=== PATIENT | female | born 1950 | race Caucasian/White ===

== ENCOUNTER 2018-12-15 21:50 | Emergency (ER) | payer MEDICARE, BC ==
[2018-12-15 22:11] VITALS: BP 149/83
--- NOTE | 2018-12-15 22:45 | EDM.PDOC ---
ED HPI GENERAL MEDICAL PROBLEM - General Chief Complaint: Neuro Symptoms/Deficits Stated Complaint: LEFT SIDE NUMBNESS Time Seen by Provider: 12/15/18 21:53 Source of Information: Reports: Patient, EMS, Family ( and mother) History Limitations: Reports: No Limitations - History of Present Illness INITIAL COMMENTS - FREE TEXT/NARRATIVE: Patient brought via EMS with complaint of two episodes of left-sided numbness and weakness. The first was at 7:00 pm and lasted about two minutes; she says her left arm felt like she had laid on it and it fell asleep but she had been working in the kitchen and was walking to sit in a chair to join her and mother watching TV, when she told her her arm and leg felt heavy. She then moved to the couch to lay down but her left leg was too weak to support her and her assisted her to the couch. After two minutes she was back to normal but half hour later she felt some pressure in left central chest that lasted about 30 minutes. The second episode of left-side numbness and weakness came about 9:00 pm and lasted only about 1 minute she says. It was the same otherwise. She denies any facial droop, vision change, slurred speech and confirms this as he was with her. She says she did have a left frontal headache for awhile but it is now resolved. She feels completely back to normal now. She just returned home yesterday from 5 days of testing [facility] in [facility] for lung transplant. She had numerous tests including an angiogram 4 days ago. Angiogram showed mild blockage in one artery that didn 't require stenting and the rest were clear patient says. She has COPD and epilepsy. EMS gave her ASA 81 x 4. She had a stroke in 2009 that she was told was called thalamic involving left arm numbness for two weeks. No residual deficits and she wasn't placed on chronic antiplatelets. - Related Data Allergies Allergy/AdvReac Type Severity Reaction Status Date / Time No Known Allergies Allergy Verified 05/26/15 10:10 Home Meds: Home Meds Albuterol/Ipratropium [Combivent Respimat] 1 puff INH 1300,1830,2200 12/15/18 [ History] Albuterol/Ipratropium [DuoNeb 3.0-0.5 MG/3 ML] 3 ml INH DAILY 12/15/18 [History] Fluticasone/Salmeterol [Advair 250-50 Diskus] 1 puff INH BID 12/15/18 [History] Levothyroxine 125 mcg PO DAILY 12/15/18 [History] Phenytoin 300 mg PO BEDTIME 12/15/18 [History] ED ROS GENERAL - Review of Systems Review Of Systems: See Below Constitutional: Reports: Weakness (as in HPI). Denies: Fever, Chills HEENT: Denies: Ear Pain, Throat Pain, Vision Change Respiratory: Denies: Shortness of Breath, Cough Cardiovascular: Reports: Chest Pain (pressure as in HPI). Denies: Lightheadedness, Syncope GI/Abdominal: Denies: Abdominal Pain, Diarrhea, Nausea, Vomiting : Reports: No Symptoms Musculoskeletal: Denies: Neck Pain, Shoulder Pain, Arm Pain, Back Pain, Hand Pain, Leg Pain, Foot Pain Skin: Denies: Cyanosis, Jaundice, Mottled, Pallor, Diaphoresis Neurological: Reports: Headache, Weakness (left leg as in HPI). Denies: Confusion, Dizziness, Seizure, Syncope, Trouble Speaking, Change in Speech Psychiatric: Reports: Anxiety (she thinks this may be the cause of her chest pressure). Denies: Agitation, Confusion ED EXAM, NEURO - Physical Exam Exam: See Below Exam Limited By: No Limitations General Appearance: Alert, WD/WN, No Apparent Distress Eye Exam: Bilateral Eye: EOMI, Normal Inspection (with full visual guerrier), PERRL Ears: Normal External Exam, Hearing Grossly Normal Nose: Normal Inspection, No Blood Throat/Mouth: Normal Inspection, Normal Lips, Normal Voice, No Airway Compromise Head Exam: Atraumatic, Normocephalic Neck: Normal Inspection, Full Range of Motion Respiratory/Chest: No Respiratory Distress, Lungs Clear, Normal Breath Sounds Cardiovascular: Regular Rate, Rhythm, No Murmur GI/Abdominal: Normal Bowel Sounds, Soft, Non-Tender, No Organomegaly, No Distention Neurological: Alert, Normal Mood/Affect, Normal Dorsiflexion, CN II-XII Intact, Normal Plantar Flexion, No Motor/Sensory Deficits, Oriented x 3, Straight Leg Raise (L), Straight Leg Raise (R), 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, 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 all 5/5 and symmetric) Back Exam: Normal Inspection, Full Range of Motion Extremities: Normal Inspection, Normal Range of Motion, No Pedal Edema Psychiatric: Normal Affect, Normal Mood Skin Exam: Warm, Dry, Intact, Normal Color, No Rash Course - Vital Signs Last Recorded V/S: Last Vital Signs Temp 97.6 F 12/15/18 22:09 Pulse 100 12/15/18 22:09 Resp 17 12/15/18 22:09 BP 149/83 H 12/15/18 22:09 Pulse Ox 97 12/15/18 22:09 - Orders/Labs/Meds Orders: Active Orders 24 hr Category Date Time Status Head wo Cont [CT] Stat Exams 12/15/18 21:56 Taken Labs: Laboratory Tests 12/15/18 12/15/18 Range/Units 22:28 22:28 WBC 7.37 (5.00-10.00) 10^3/uL RBC 4.16 (3.80-5.50) 10^6/uL Hgb 13.8 (12.0-16.0) g/dL Hct 39.5 (37.0-47.0) % MCV 95.0 H (82.0-92.0) fL MCH 33.2 H (27.0-31.0) pg MCHC 34.9 (32.0-36.0) g/dL RDW 12.7 (11.5-14.5) % Plt Count 247 (150-400) 10^3/uL MPV 9.6 (7.4-10.4) fL Immature Gran % (Auto) 0.1 (0.0-5.0) % Neut % (Auto) 67.1 (50.0-70.0) % Lymph % (Auto) 23.9 (20.0-40.0) % [place] % (Auto) 8.3 H (2.0-8.0) % Eos % (Auto) 0.1 L (1.0-3.0) % Baso % (Auto) 0.5 (0.0-1.0) % Immature Gran # (Auto) 0.01 (0.00-0.50) 10^3/uL Neut # (Auto) 4.94 (2.50-7.00) 10^3/uL Lymph # (Auto) 1.76 (1.00-4.00) 10^3/uL [place] # (Auto) 0.61 (0.10-0.80) 10^3/uL Eos # (Auto) 0.01 L (0.10-0.30) 10^3/uL Baso # (Auto) 0.04 (0.00-0.10) 10^3/uL Sodium 140 (136-145) mmol/L Potassium 3.2 L (3.3-5.3) mmol/L Chloride 102 (98-115) mmol/L Carbon Dioxide 23.4 (21.0-32.0) mmol/L Anion Gap 17.8 H (5-15) mmol/L BUN 14 (6-25) mg/dL Creatinine 0.74 (0.51-1.17) mg/dL Est Cr Clr Drug Dosing 70.40 mL/min Estimated GFR (MDRD) > 60 mL/min Glucose 102 H (75 - 99) mg/dL Calcium 8.2 L (8.7-10.3) mg/dL Troponin I 0.11 H* (0.00-0.070) ng/mL - Re-Assessments/Exams Free Text/Narrative Re-Assessment/Exam: 12/15/18 23:[address] is normal. Trop is 0.11 possibly related to angiogram 4 days ago. I discussed findings with patient and her and then called [facility] and discussed with neurologist Dr. Tamez and hospitalist Dr. Farmer who accepted for transfer. The neurologist thinks it sounds like a "stuttering lacunar stroke". We will transfer as soon as they call with bed placement. Patient has been stable with normal exam and NIH stroke scale since arrival in ER. 12/16/18 00:06 Patient normally takes Dilantin 300 mg every evening for her epilepsy and requests this before she leaves for [place], so we will give that now. Departure - Departure Time of Disposition: 23:49 Disposition: DC/Tfer to Acute Hospital 02 Condition: Good Clinical Impression: Lacunar stroke - Discharge Information Referrals: Brigitte Qureshi PA-C [Primary Care Provider] - Forms: ED Department Discharge - My Orders Last 24 Hours: My Active Orders 12/15/18 21:56 Head wo Cont [CT] Stat - Assessment/Plan Last 24 Hours: My Active Orders 12/15/18 21:56 Head wo Cont [CT] Stat
[2018-12-15 23:08] LABS: CHLORIDE,CL 102 mmol/L (98-115)
[2018-12-15 23:20] LABS: ANION GAP 17.8 mmol/L (5-15); SODIUM,NA 140 mmol/L (136-145)
[2018-12-16] MEDS ORDERED: Phenytoin 100 MG Cap.ER PO ONE (00:05)
--- NOTE | 2018-12-16 08:14 | CT ---
[id number] CT/CT Head WO IV EXAM: CT Head WO IV CLINICAL DATA: LEFT SIDED NUMBNESS COMPARISON STUDY: July 13, 2014. FINDINGS: No intracranial hemorrhage, extra-axial fluid collection, mass, or acute ischemia. No hydrocephalus. Paranasal sinuses and mastoid air cells are clear. IMPRESSION: No acute intracranial findings. Ambrose Mcclendon MD 12/16/18 0813 Thank you for allowing us to participate in the care of your patient.
== END 2018-12-16 00:15 ==
LOC: KA.ED 21:50
DX: I63.81 Other cerebral infarction due to occlusion or stenosis of small artery (principal); G81.94 Hemiplegia, unspecified affecting left nondominant side; Z79.899 Other long term (current) drug therapy
CPT/HCPCS: 36415; 70450; 80048; 84484; 85025; 93005; 99284; 99285-25; A9270-GY

== ENCOUNTER 2019-03-12 12:19 | Observation (INO) | payer MEDICARE, BC ==
--- NOTE | 2019-03-12 13:23 | CR ---
[id number] RAD/RAD Chest PA And Lateral EXAM: RAD Chest PA And Lateral INDICATION: CHRONIC OBSTRUCTIVE PULMONARY DISEASE, UNSPECIFIED. COMPARISON: January 2019. DISCUSSION: Cardiomediastinal silhouette is normal in size and contour. Changes of COPD, similar to the prior examination. No infiltrate, effusion, pneumothorax, or edema. Post surgical change projects over the right hemithorax. IMPRESSION: No acute findings or significant change from the prior examination. Ambrose Mcclendon MD 03/12/19 0532 Thank you for allowing us to participate in the care of your patient.
[2019-03-12 13:49] LABS: CHLORIDE,CL 105 mmol/L (98-115); SODIUM,NA 140 mmol/L (136-145)
[2019-03-12] MEDS ORDERED: Sodium Chloride 0.9% 50 ML IV ONE (14:35)
[2019-03-12] MEDS ORDERED: Iopamidol 755 Mg/ML 100 ML Bottle IV ONE (14:35)
[2019-03-12] MEDS ORDERED: methylPREDNISolone Sodium Succinate 125 MG/2 ML SDV IM SCH (15:00)
[2019-03-12] MEDS: methylPREDNISolone Sodium Succinate 125 MG/2 ML SDV IV SCH ×2 (15:33→21:12)
[2019-03-12] MEDS: Sodium Chloride 0.9% 10 ML Syringe FLUSH PRN ×2 (15:34→21:13)
[2019-03-12] MEDS ORDERED: Non-Formulary Medication 1 Each (Albuterol/Ipratropium [Combivent Respimat] 1 PUFF) INH SCH (18:30)
[2019-03-12] MEDS ORDERED: ALBUTEROL INH SCH (19:00)
[2019-03-12] MEDS: COMBIVENT RESPIMAT INH SCH ×2 (19:30→22:59)
[2019-03-12] MEDS: NYSTATIN PO SCH ×2 (19:30→22:59)
[2019-03-12] MEDS ORDERED: Non-Formulary Medication 1 Each (Fluticasone/Salmeterol [Advair 250-50 Diskus] 1 PUFF) INH SCH (21:00)
[2019-03-12] MEDS ORDERED: Phenytoin 100 MG Cap.ER**OWN MED PO SCH (21:00)
[2019-03-12] MEDS ORDERED: DILANTIN 30 MG PO SCH (21:00)
[2019-03-12] MEDS: DOXYCYCLINE 100 MG PO SCH (21:12)
[2019-03-13] MEDS: Albuterol 8 GM Inhaler**OWN MED INH PRN ×2 (02:08→09:42)
[2019-03-13] MEDS: methylPREDNISolone Sodium Succinate 125 MG/2 ML SDV IV SCH ×2 (02:14→09:04)
[2019-03-13] MEDS: Acetaminophen 500 MG Tab PO PRN ×2 (02:20→09:25)
[2019-03-13] MEDS: COMBIVENT RESPIMAT INH SCH ×4 (03:52→12:47)
[2019-03-13] MEDS: NYSTATIN PO SCH ×3 (06:42→12:48)
[2019-03-13] MEDS ORDERED: OMEPRAZOLE 20 MG PO SCH (07:30)
[2019-03-13] MEDS ORDERED: LEVOTHYROXINE 125 MCG PO SCH (07:30)
[2019-03-13] MEDS ORDERED: FLUTICASONE IH SCH (09:00)
[2019-03-13] MEDS ORDERED: VILANTEROL IH SCH (09:00)
[2019-03-13] MEDS ORDERED: Albuterol/Ipratropium 3.0-0.5 MG/3 ML Neb Soln INH SCH (09:00)
[2019-03-13] MEDS ORDERED: Aspirin 81 MG Tab.Chew PO SCH (09:00)
[2019-03-13] MEDS ORDERED: Cholecalciferol (Vitamin D3) 1,000 Unit Tab PO SCH (09:00)
[2019-03-13] MEDS ORDERED: atorvaSTATin 40 MG Tab**OWN MED PO SCH (09:00)
[2019-03-13] MEDS: DOXYCYCLINE 100 MG PO SCH (09:11)
--- NOTE | 2019-03-13 09:30 | CT ---
[id number] CT/CT Chest W IV EXAM: CT Chest W IV CLINICAL DATA: CHRONIC OBSTRUCTIVE PULMONARY DISEASE, UNSPECIFIED. COMPARISON: None. FINDINGS: LUNGS: Moderate to severe predominantly centrilobular emphysema. No pneumothorax or effusion. No endobronchial lesions. Multiple tree-in-bud nodularities within the lingula and right upper lobe. HEART AND GREAT VESSELS: The heart is normal in size. Coronary artery disease. Atherosclerotic calcifications of the aorta and its branches. MEDIASTINUM AND LYMPHATICS: There are multiple prominent mediastinal lymph nodes however none of which are pathologically enlarged by CT size criteria. No enlarged hilar or axillary lymph nodes. UPPER ABDOMINAL ORGANS: Generalized hypodensity of the liver consistent with hepatic steatosis. BONES: Scattered changes of spondylosis in the spine. No fracture or osseous lesion. IMPRESSION: 1. Moderate to severe predominantly centrilobular emphysema. 2. Tree-in-bud nodularity seen within the lingula and right upper lobe. This is nonspecific but can be seen with a nontuberculosis mycobacteria such as MAC. Henrik Middleton DO 03/12/19 1559 Thank you for allowing us to participate in the care of your patient.
[2019-03-13 12:50] VITALS: BP 135/84
--- NOTE | 2019-03-14 08:56 | DISCH ---
This is a 68-year-old female who was admitted to the hospital with a noninfective COPD exacerbation yesterday. Lab work was basically unremarkable yesterday. She did have a D-dimer of 132. Chest x-ray was performed and found to have no acute findings or significant changes from prior examination in 01/2019. She did go on to have a chest CT scan yesterday as well, which showed [id number] predominantly centrilobular emphysema. There was also tree- in-bud nodularity seen within the lingula and right upper lobe. This is nonspecific, but commented by the radiologist that this could be seen with nontuberculous mycobacteria such as MAC. The patient is taking doxycycline for a previous possible tick bite. She does have a followup appointment with Pulmonology in [place] on 03/17/2019. The patient clinically appears to feel better and also admits to feeling much better than she did before. She was given 4 doses of Solu-Medrol 125 mg intravenously every 6 hours. She will be discharged with a taper of oral steroids. She will continue all previous medications as before. PHYSICAL EXAMINATION: VITAL SIGNS: Temp is 98.6, pulse is 100, respirations 18, blood pressure 118/81, O2 saturation is 95% on room air. SKIN: Warm and dry to touch, although appears pale. CARDIAC: Reveals S1, S2 to be normal. Rate and rhythm are regular. No murmur, click, or gallop is auscultated. LUNGS: Clear without rales, wheezes, or rhonchi. ABDOMEN: Soft, nontender. There is no pedal edema. IMPRESSION: 1. Chronic obstructive pulmonary disease exacerbation, noninfective. She was treated with intravenous steroids and has improved clinically. She will be discharged home. She will begin a prednisone taper starting this evening. She was encouraged to call the clinic or the hospital if she has any questions. She will keep her previously scheduled Pulmonology appointment in [place] on 03/17/2019. I have asked that she follow up with me next week in the clinic as well. 2. Hypothyroidism, stable with current levothyroxine dose, which has recently been changed, and will be followed in 2 months. 3. Hypercholesterolemia, on statin therapy. 4. Recent tick bite, on doxycycline. 5. She does have oral thrush, which she is taking nystatin for. 6. Gastroesophageal reflux disease, on omeprazole, and stable. 7. Vitamin D deficiency. She is on high-dose vitamin D supplementation for the next 12 weeks. /[id number]/MODL
== END 2019-03-13 12:57 | disposition home or self-care (01) ==
LOC: KA.OC 12:19 → KA.MS 12:19
DX: J43.2 Centrilobular emphysema (principal); E03.9 Hypothyroidism, unspecified; E78.00 Pure hypercholesterolemia, unspecified; E55.9 Vitamin D deficiency, unspecified; B37.0 Candidal stomatitis; K21.9 Gastro-esophageal reflux disease without esophagitis; G40.909 Epilepsy, unspecified, not intractable, without status epilepticus; Z79.82 Long term (current) use of aspirin; Z79.51 Long term (current) use of inhaled steroids; Z79.899 Other long term (current) drug therapy
CPT/HCPCS: 36415; 71046; 71260; 80053; 85025; 85379; 94640; 96374; 96376; A9270-GY; G0378; J2930; J7050; Q9967

== ENCOUNTER 2019-09-19 19:30 | Observation (INO) | payer MEDICARE, BC ==
[2019-09-19] MEDS ORDERED: Sodium Chloride 0.9% 10 ML Syringe FLUSH PRN (19:48)
[2019-09-19] MEDS ORDERED: Sodium Chloride 0.9% 1,000 ML IV ONE (19:49)
[2019-09-19] MEDS ORDERED: Albuterol/Ipratropium 3.0-0.5 MG/3 ML Neb Soln NEB ONE (20:05)
--- NOTE | 2019-09-19 20:14 | CR ---
[id number] RAD/RAD Chest PA And Lateral EXAM: RAD Chest PA And Lateral CLINICAL DATA: INFLUENZA B POSITIVE WEAKNESS COMPARISON: CORRELATION IS MADE WITH THE EXAM OF SEPTEMBER 15, 2019 FINDINGS: The lungs remain clear The lungs are hyperaerated The cardiomediastinal contour is stable Surgical clips are seen in the right axillary region IMPRESSION: NO DEFINITE PNEUMONIA COPD Obinna Gomez MD 09/19/192012 Thank you for allowing us to participate in the care of your patient.
[2019-09-19 20:34] LABS: ANION GAP 18.2 mmol/L (5-15); CHLORIDE,CL 101 mmol/L (98-115); SODIUM,NA 139 mmol/L (136-145)
--- NOTE | 2019-09-19 20:38 | EDM.PDOC ---
ED HPI GENERAL MEDICAL PROBLEM - General Chief Complaint: General Stated Complaint: COLD SYMPTOMS, HX INFLUENZA B+ Time Seen by Provider: 09/19/19 20:05 Source of Information: Reports: Patient History Limitations: Reports: No Limitations - History of Present Illness INITIAL COMMENTS - FREE TEXT/NARRATIVE: Patient is a 68-year-old female who presents to the emergency department via private vehicle has a complaint of fever and upper respiratory symptoms. Patient states that she was diagnosed with influenza B 5 days ago and has history of COPD. Patient was placed on Tamiflu and course ended today. Patient states that she had a temperature of 101 earlier today, and symptoms have not improved. Patient feels short of breath and has a persistent cough. Denies chest pain, lower extremity edema, nausea, vomiting, diarrhea. Onset: Gradual Onset Date: 09/12/19 Duration: Week(s): Location: Reports: Chest Severity: Moderate Improves with: Reports: None Worsens with: Reports: None Associated Symptoms: Reports: Cough, Fever/Chills, Shortness of Breath - Related Data Allergies Allergy/AdvReac Type Severity Reaction Status Date / Time No Known Allergies Allergy Verified 09/20/19 01:12 Home Meds: Home Meds Albuterol/Ipratropium [Combivent Respimat] 1 puff INH TID 12/15/18 [History] Albuterol/Ipratropium [DuoNeb 3.0-0.5 MG/3 ML] 3 ml INH DAILY 12/15/18 [History] Levothyroxine 125 mcg PO DAILY 12/15/18 [History] Albuterol [Ventolin HFA] 1 - 2 puff INH Q4HR PRN 03/12/19 [History] Aspirin 81 mg PO DAILY 03/12/19 [History] Omeprazole 20 mg PO DAILY 03/12/19 [History] atorvaSTATin Calcium [Atorvastatin Calcium] 40 mg PO DAILY 03/12/19 [History] Acetaminophen [Tylenol Extra Strength] 1,000 mg PO Q6H PRN tablet 03/13/19 [Rx] Calcium Carb/Vitamin D3/Vit K1 [Viactiv 650 mg-12.5 Mcg Chew] 1 tab PO DAILY [History] Fluticasone/Salmeterol [Advair 250-50 Diskus] 1 puff INH BID 09/19/19 [History] levETIRAcetam [Keppra] 1,000 mg PO QAM 09/19/19 [History] levETIRAcetam [Keppra] 1,500 mg PO QPM 09/19/19 [History] Past Medical History HEENT History: Reports: Cataract Respiratory History: Reports: COPD, SOB Gastrointestinal History: Reports: Irritable Bowel Syndrome 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: , Other (See Below) Other 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 MACHINE OPERATOR History: times 2 Musculoskeletal History: Reports: Arthritis Neurological History: Reports: Other (See Below) Other Neuro History: epilepsy controlled with dilantin Endocrine/Metabolic History: Reports: Hypothyroidism Oncologic (Cancer) History: Reports: Breast - Infectious Disease History Infectious Disease History: Reports: Chicken Pox, Influenza, Measles, Mumps - Past Surgical History HEENT Surgical History: Reports: Oral Surgery Cardiovascular Surgical History: Reports: Other (See Below) Other Cardiovascular Surgeries/Procedures: cardiac cath last sunday normal Respiratory Surgical History: Reports: Other (See Below) Other Respiratory Surgeries/Procedures: Last week was at [facility] to see if she qualifies for a lung transplant GI Surgical History: Reports: Appendectomy Female Surgical History: Reports: Section Endocrine Surgical History: Reports: None Other Endocrine Surgeries/Procedures: radioactive pills for thyroid Musculoskeletal Surgical History: Reports: None Oncologic Surgical History: Reports: Lumpectomy Other Oncologic Surgeries/Procedures: chemo and radiation Social & Family History - Family History Family Medical History: Noncontributory - Caffeine Use Caffeine Use: Reports: Coffee ED ROS GENERAL - Review of Systems Review Of Systems: Comprehensive ROS is negative, except as noted in HPI. Constitutional: Reports: Fever, Chills HEENT: Reports: No Symptoms Respiratory: Reports: Shortness of Breath, Wheezing, Cough Cardiovascular: Reports: No Symptoms Endocrine: Reports: No Symptoms GI/Abdominal: Reports: No Symptoms : Reports: No Symptoms Musculoskeletal: Reports: No Symptoms Skin: Reports: No Symptoms Neurological: Reports: No Symptoms Psychiatric: Reports: No Symptoms Hematologic/Lymphatic: Reports: No Symptoms Immunologic: Reports: No Symptoms ED EXAM, GENERAL - Physical Exam Exam: See Below Exam Limited By: No Limitations General Appearance: Alert, WD/WN, Mild Distress Eye Exam: Bilateral Eye: Normal Inspection Nose: Normal Inspection, Normal Mucosa, No Blood Throat/Mouth: Normal Inspection, Normal Oropharynx, No Airway Compromise Head: Atraumatic, Normocephalic Neck: Normal Inspection. No: Lymphadenopathy (L), Lymphadenopathy (R) Respiratory/Chest: Decreased Breath Sounds, Wheezing (end expiratory) Cardiovascular: Tachycardia GI/Abdominal: Normal Bowel Sounds, Soft, Non-Tender Back Exam: Normal Inspection. No: CVA Tenderness (L), CVA Tenderness (R) Extremities: Normal Inspection, No Pedal Edema Neurological: Alert, Oriented, Normal Cognition Psychiatric: Normal Affect, Normal Mood Skin Exam: Warm, Dry, Intact, Normal Color, No Rash Course - Vital Signs Last Recorded V/S: Last Vital Signs Temp 97.4 F 09/20/19 06:34 Pulse 80 09/20/19 06:34 Resp 24 H 09/20/19 06:34 BP 111/77 09/20/19 06:34 Pulse Ox 97 09/20/19 06:34 - Orders/Labs/Meds Orders: Active Orders 24 hr Category Date Time Status Patient Status [ADT] Routine ADT 09/19/19 21:35 Active Oxygen Therapy [RC] PRN Care 09/19/19 21:35 Active RT Aerosol Therapy [RC] ASDIRECTED Care 09/19/19 20:06 Active Up to Chair [RC] ASDIRECTED Care 09/19/19 21:34 Active VTE/DVT Education [RC] PER UNIT ROUTINE Care 09/19/19 21:35 Active Vital Signs [RC] 0300,0700,1100,1500,1900,2300 Care 09/19/19 21:35 Active Acetaminophen [Tylenol] Med 09/19/19 21:34 Active 650 mg PO Q4H PRN Albuterol/Ipratropium [DuoNeb 3.0-0.5 MG/3 ML] Med 09/19/19 21:34 Active 3 ml NEB Q4H PRN Sodium Chloride 0.9% [Saline Flush] Med 09/19/19 19:48 Active 10 ml FLUSH Q8HR PRN Peripheral IV Insertion Adult [OM.PC] Routine Oth 09/19/19 19:48 Ordered Resuscitation Status Routine Resus Stat 09/19/19 21:34 Ordered Medication Orders Acetaminophen (Tylenol) 650 mg PO Q4H PRN PRN Reason: Pain (Mild 1-3)/fever Last Admin: 09/19/19 22:17 Dose: 650 mg Acetaminophen (Tylenol Extra Strength) 1,000 mg PO Q6H PRN PRN Reason: Pain Albuterol/Ipratropium (Duoneb 3.0-0.5 Mg/3 Ml) 3 ml NEB Q4H PRN PRN Reason: Shortness Of Breath/wheezing Albuterol/Ipratropium (Combivent Respimat) 1 gm INH TID [facility] Last Admin: 09/20/19 08:04 Dose: 1 inh Admin: 09/19/19 23:55 Dose: 1 inh Albuterol/Ipratropium (Combivent Respimat) gm INH TID AMADEO Albuterol/Ipratropium (Duoneb 3.0-0.5 Mg/3 Ml) 3 ml INH DAILY [facility] Aspirin (Aspirin) 81 mg PO DAILY [facility] Atorvastatin Calcium (Lipitor) 40 mg PO DAILY [facility] Ceftriaxone Sodium (Rocephin) 1 gm IVPUSH Q24H [facility] Last Admin: 09/20/19 11:30 Dose: 1 gm Guaifenesin/Phenylephrine HCl (Robitussin Dm) 10 ml PO Q4H PRN PRN Reason: Cough Last Admin: 09/20/19 09:38 Dose: 10 ml Potassium Chloride/Sodium Chloride (Normal Saline With 40 Meq Kcl) 1,000 mls @ 75 mls/hr IV ASDIRECTED [facility] Levetiracetam (Keppra) 1,000 mg PO QAM [facility] Levothyroxine Sodium (Synthroid) 100 mcg PO ACBREAKFAST [facility] Last Admin: 09/20/19 07:23 Dose: 100 mcg Levothyroxine Sodium (Levothyroxine) 25 mcg PO ACBREAKFAST [facility] Last Admin: 09/20/19 07:23 Dose: 25 mcg Methylprednisolone Sodium Succinate (Solu-Medrol) 125 mg IVPUSH Q8H [facility] Last Admin: 09/20/19 11:30 Dose: 125 mg Non-Formulary Medication (Calcium Carb/Vitamin D3/Vit K1 [Viactiv 650 Mg-12.5 Mcg Chew]) 1 tab PO DAILY [facility] Non-Formulary Medication (Levothyroxine [Levothyroxine]) 125 mcg PO DAILY [facility] Omeprazole (Omeprazole) 20 mg PO DAILY [facility] Fluticasone/Salmeterol (Advair Diskus 250-50) 1 puff INH 1000,2200 [facility] Last Admin: 09/20/19 10:05 Dose: 1 inh Admin: 12/28/19 00:08 Dose: 1 inh Sodium Chloride (Saline Flush) 10 ml FLUSH Q8HR PRN PRN Reason: keep vein open Last Admin: 09/19/19 22:25 Dose: 10 ml Labs: Laboratory Tests 09/19/19 09/19/19 Range/Units 20:05 20:05 WBC 11.17 H (5.00-10.00) 10^3/uL RBC 4.32 (3.80-5.50) 10^6/uL Hgb 14.0 (12.0-16.0) g/dL Hct 40.4 (37.0-47.0) % MCV 93.5 H D (82.0-92.0) fL MCH 32.4 H (27.0-31.0) pg MCHC 34.7 (32.0-36.0) g/dL RDW 12.3 (11.5-14.5) % Plt Count 265 (150-400) 10^3/uL MPV 9.8 (7.4-10.4) fL Immature Gran % (Auto) 0.2 (0.0-5.0) % Neut % (Auto) 87.7 H (50.0-70.0) % Lymph % (Auto) 5.5 L (20.0-40.0) % [place] % (Auto) 6.4 (2.0-8.0) % Eos % (Auto) 0.0 L (1.0-3.0) % Baso % (Auto) 0.2 (0.0-1.0) % Immature Gran # (Auto) 0.02 (0.00-0.50) 10^3/uL Neut # (Auto) 9.80 H (2.50-7.00) 10^3/uL Lymph # (Auto) 0.61 L (1.00-4.00) 10^3/uL [place] # (Auto) 0.72 (0.10-0.80) 10^3/uL Eos # (Auto) 0.00 L (0.10-0.30) 10^3/uL Baso # (Auto) 0.02 (0.00-0.10) 10^3/uL Sodium 139 (136-145) mmol/L Potassium 3.1 L D (3.3-5.3) mmol/L Chloride 101 (98-115) mmol/L Carbon Dioxide 22.9 (21.0-32.0) mmol/L Anion Gap 18.2 H (5-15) mmol/L BUN 10 (6-25) mg/dL Creatinine 0.77 (0.51-1.17) mg/dL Est Cr Clr Drug Dosing 66.37 mL/min Estimated GFR (MDRD) > 60 mL/min Glucose 123 H (75 - 99) mg/dL Calcium 8.7 (8.7-10.3) mg/dL Total Bilirubin 0.5 (0.2-1.0) mg/dL AST 31 (15-37) U/L ALT 30 (12-78) U/L Alkaline Phosphatase 86 (46-116) IU/L Total Protein 7.7 (6.4-8.2) g/dL Albumin 2.87 L (3.00-4.80) g/dL Meds: Medications Generic Name Dose Route Start Last Admin Trade Name Freq PRN Reason Stop Dose Admin Acetaminophen 650 mg 09/19/19 21:34 09/19/19 22:17 Tylenol PO 650 mg Q4H PRN Administration Pain (Mild 1-3)/fever Acetaminophen 1,000 mg 09/20/19 11:12 Tylenol Extra Strength PO Q6H PRN Pain Albuterol/Ipratropium 3 ml 09/19/19 21:34 Duoneb 3.0-0.5 Mg/3 Ml NEB Q4H PRN Shortness Of Breath/wheezing Albuterol/Ipratropium 1 gm 09/19/19 23:45 09/20/19 08:04 Combivent Respimat INH 1 inh TID AMADEO Administration Albuterol/Ipratropium gm 09/20/19 14:00 Combivent Respimat INH TID AMADEO Albuterol/Ipratropium 3 ml 09/21/19 09:00 Duoneb 3.0-0.5 Mg/3 Ml INH DAILY [facility] Aspirin 81 mg 09/21/19 09:00 Aspirin PO DAILY [facility] Atorvastatin Calcium 40 mg 09/21/19 09:00 Lipitor PO DAILY [facility] Ceftriaxone Sodium 1 gm 09/20/19 11:00 09/20/19 11:30 Rocephin IVPUSH 1 gm Q24H AMADEO Administration Guaifenesin/Phenylephrine HCl 10 ml 09/20/19 08:22 09/20/19 09:38 Robitussin Dm PO 10 ml Q4H PRN Administration Cough Potassium Chloride/Sodium Chloride 1,000 mls @ 75 mls/hr 09/20/19 11:30 Normal Saline With 40 Meq Kcl IV ASDIRECTED [facility]ADEO Levetiracetam 1,000 mg 09/21/19 09:00 Keppra PO QAM [facility]O Levothyroxine Sodium 100 mcg 09/20/19 07:30 09/20/19 07:23 Synthroid PO 100 mcg ACBREAKFAST AM[facility]O Administration Levothyroxine Sodium 25 mcg 09/20/19 07:30 09/20/19 07:23 Levothyroxine PO 25 mcg ACBREAKFAST AM[facility]O Administration Methylprednisolone Sodium Succinate 125 mg 09/20/19 11:00 09/20/19 11:30 Solu-Medrol IVPUSH 125 mg Q8H [facility]O Administration Non-Formulary Medication 1 tab 09/21/19 09:00 Calcium Carb/Vitamin D3/Vit K1 [Viactiv 650 Mg-12.5 Mcg Chew] PO DAILY [facility] Non-Formulary Medication 125 mcg 09/21/19 09:00 Levothyroxine [Levothyroxine] PO DAILY [facility] Omeprazole 20 mg 09/21/19 09:00 Omeprazole PO DAILY [facility] Fluticasone/Salmeterol 1 puff 09/20/19 10:00 09/20/19 10:05 Advair Diskus 250-50 INH 1 inh 1000,2200 AMADEO Administration Sodium Chloride 10 ml 09/19/19 19:48 09/19/19 22:25 Saline Flush FLUSH 10 ml Q8HR PRN Administration keep vein open Discontinued Medications Generic Name Dose Route Start Last Admin Trade Name Freq PRN Reason Stop Dose Admin Albuterol/Ipratropium 3 ml 09/19/19 20:05 09/19/19 20:14 Duoneb 3.0-0.5 Mg/3 Ml NEB 09/19/19 20:06 3 ml ONETIME ONE Administration Albuterol/Ipratropium 4 gm 09/19/19 23:40 09/20/19 03:52 Combivent Respimat INH Not Given TID AMADEO Albuterol/Ipratropium 1 gm 09/20/19 09:00 Combivent Respimat INH TID AMADEO Sodium Chloride 1,000 mls @ 999 mls/hr 09/19/19 19:49 09/19/19 20:10 Normal Saline IV 09/19/19 20:49 999 mls/hr .BOLUS ONE Administration Sodium Chloride 1,000 mls @ 125 mls/hr 09/19/19 21:45 09/20/19 07:26 Normal Saline IV 125 mls/hr ASDIRECTED AMADEO Administration Methylprednisolone Sodium Succinate 125 mg 09/19/19 21:38 09/19/19 22:20 Solu-Medrol IVPUSH 09/19/19 21:39 125 mg ONETIME ONE Administration Phenytoin Sodium 300 mg 09/20/19 21:00 Phenytoin PO BEDTIME AMADEO Fluticasone/Salmeterol 1 puff 09/19/19 23:45 09/20/19 03:52 Advair Diskus 250-50 INH Not Given BID AMADEO - Re-Assessments/Exams Free Text/Narrative Re-Assessment/Exam: 09/19/19 21:31 Patient afebrile, nontoxic appearing. Oxygen saturation decreased to 89% when on room air. Cough is persistent, although she feels a little bit better after the nebulizer treatment. Discussed case with Brigitte Qureshi, patient will be admitted for observation and followed. Departure - Departure Time of Disposition: 21:32 Disposition: Refer to Observation Condition: Fair Clinical Impression: Influenza, Hypoxemia COPD (chronic obstructive pulmonary disease) Qualifiers: COPD type: chronic bronchitis Chronic bronchitis type: unspecified Qualified Code(s): J42 - Unspecified chronic bronchitis - Discharge Information Sepsis Event Note - Evaluation Sepsis Screening Result: Possible Sepsis Risk - Focused Exam Date Exam was Performed: 09/20/19 Time Exam was Performed: 12:02 - My Orders Last 24 Hours: My Active Orders 09/19/19 19:48 Sodium Chloride 0.9% [Saline Flush] 10 ml FLUSH Q8HR PRN Peripheral IV Insertion Adult [OM.PC] Routine 09/19/19 20:06 RT Aerosol Therapy [RC] ASDIRECTED 09/19/19 21:34 Up to Chair [RC] ASDIRECTED Acetaminophen [Tylenol] 650 mg PO Q4H PRN Albuterol/Ipratropium [DuoNeb 3.0-0.5 MG/3 ML] 3 ml NEB Q4H PRN Resuscitation Status Routine 09/19/19 21:35 Patient Status [ADT] Routine Oxygen Therapy [RC] PRN VTE/DVT Education [RC] PER UNIT ROUTINE Vital Signs [RC] 0300,0700,1100,1500,1900,2300 - Assessment/Plan Admission H&P: Please use this note as an admission H&P Last 24 Hours: My Active Orders 09/19/19 19:48 Sodium Chloride 0.9% [Saline Flush] 10 ml FLUSH Q8HR PRN Peripheral IV Insertion Adult [OM.PC] Routine 09/19/19 20:06 RT Aerosol Therapy [RC] ASDIRECTED 09/19/19 21:34 Up to Chair [RC] ASDIRECTED Acetaminophen [Tylenol] 650 mg PO Q4H PRN Albuterol/Ipratropium [DuoNeb 3.0-0.5 MG/3 ML] 3 ml NEB Q4H PRN Resuscitation Status Routine 09/19/19 21:35 Patient Status [ADT] Routine Oxygen Therapy [RC] PRN VTE/DVT Education [RC] PER UNIT ROUTINE Vital Signs [RC] 0300,0700,1100,1500,1900,2300 Assessment:: Influenza Plan: Admitted for observation
[2019-09-19] MEDS ORDERED: Acetaminophen 325 MG Tab PO PRN (21:34)
[2019-09-19] MEDS ORDERED: methylPREDNISolone Sodium Succinate 125 MG/2 ML SDV IVPUSH ONE (21:38)
[2019-09-19] MEDS: Sodium Chloride 0.9% 1,000 ML IV SCH (23:05)
[2019-09-19] MEDS ORDERED: Albuterol/Ipratropium 4 GM Inhalation Spray INH SCH (23:40)
[2019-09-19] MEDS ORDERED: Fluticasone/Salmeterol 250-50 MCG Inhalation Powder 14/Diskus INH SCH (23:45)
[2019-09-19] MEDS: ALBUTEROL INH SCH (23:55)
[2019-09-19] MEDS: IPRATROPIUM INH SCH (23:55)
[2019-09-20] MEDS: SALMETEROL INH SCH ×3 (00:08→22:02)
[2019-09-20] MEDS: FLUTICASONE INH SCH ×3 (00:08→22:02)
[2019-09-20] MEDS: Levothyroxine 100 MCG Tab PO SCH (07:23)
[2019-09-20] MEDS: Levothyroxine 25 MCG Tab PO SCH (07:23)
[2019-09-20] MEDS: Sodium Chloride 0.9% 1,000 ML IV SCH (07:26)
[2019-09-20] MEDS: IPRATROPIUM INH SCH ×4 (08:04→23:05)
[2019-09-20] MEDS: ALBUTEROL INH SCH ×4 (08:04→23:05)
[2019-09-20] MEDS ORDERED: IPRATROPIUM INH SCH (09:00)
[2019-09-20] MEDS ORDERED: ALBUTEROL INH SCH (09:00)
[2019-09-20] MEDS: guaiFENesin/Dextromethorphan 100-10 MG/5 ML Soln 5 ML Cup PO PRN ×2 (09:38→20:14)
[2019-09-20] MEDS ORDERED: Acetaminophen 500 MG Tab PO PRN (11:12)
[2019-09-20] MEDS: cefTRIAXone 1 GM Vial IVPUSH SCH (11:30)
[2019-09-20] MEDS: methylPREDNISolone Sodium Succinate 125 MG/2 ML SDV IVPUSH SCH ×2 (11:30→18:53)
[2019-09-20] MEDS ORDERED: levETIRAcetam 500 MG Tab ONE (12:20)
[2019-09-20] MEDS: Sodium Chloride 0.9% with KCl 1,000 ML IV SCH (13:01)
[2019-09-20] MEDS: Albuterol/Ipratropium 3.0-0.5 MG/3 ML Neb Soln NEB PRN (13:01)
[2019-09-20] MEDS ORDERED: Albuterol/Ipratropium 4 GM Inhalation Spray INH SCH (14:00)
[2019-09-20] MEDS: levETIRAcetam 500 MG Tab PO SCH (20:59)
[2019-09-20] MEDS ORDERED: Fluticasone/Salmeterol 250-50 MCG Inhalation Powder 14/Diskus INH SCH (21:00)
[2019-09-20] MEDS ORDERED: Phenytoin 100 MG Cap.ER PO SCH (21:00)
[2019-09-21] MEDS: guaiFENesin/Dextromethorphan 100-10 MG/5 ML Soln 5 ML Cup PO PRN ×2 (00:40→04:52)
[2019-09-21] MEDS: methylPREDNISolone Sodium Succinate 125 MG/2 ML SDV IVPUSH SCH ×3 (02:40→19:37)
[2019-09-21] MEDS: Sodium Chloride 0.9% with KCl 1,000 ML IV SCH (03:06)
[2019-09-21] MEDS: ALBUTEROL INH SCH ×5 (04:50→23:32)
[2019-09-21] MEDS: IPRATROPIUM INH SCH ×5 (04:50→23:32)
[2019-09-21] MEDS: Levothyroxine 25 MCG Tab PO SCH (06:46)
[2019-09-21] MEDS: Levothyroxine 100 MCG Tab PO SCH (06:46)
[2019-09-21 07:56] LABS: ANION GAP 16.1 mmol/L (5-15); CHLORIDE,CL 111 mmol/L (98-115); SODIUM,NA 146 mmol/L (136-145)
[2019-09-21] MEDS ORDERED: Non-Formulary Medication 1 Each (Levothyroxine [Levothyroxine] 125 MCG) PO SCH (09:00)
[2019-09-21] MEDS: levETIRAcetam 500 MG Tab PO SCH ×2 (09:17→21:07)
[2019-09-21] MEDS: Omeprazole 20 MG Cap.CR PO SCH (09:17)
[2019-09-21] MEDS: SALMETEROL INH SCH ×2 (10:15→22:09)
[2019-09-21] MEDS: FLUTICASONE INH SCH ×2 (10:15→22:09)
[2019-09-21] MEDS: Albuterol 8 GM Inhaler INH PRN (11:00)
[2019-09-21] MEDS: cefTRIAXone 1 GM Vial IVPUSH SCH (11:57)
[2019-09-21] MEDS: Albuterol/Ipratropium 3.0-0.5 MG/3 ML Neb Soln NEB PRN (13:20)
[2019-09-21] MEDS: Calcium Citrate/Vitamin D3 315 MG-250 Unit Tab PO SCH (13:20)
[2019-09-21] MEDS: atorvaSTATin 40 MG Tab PO SCH (13:21)
[2019-09-21] MEDS: Aspirin 81 MG Tab.Chew PO SCH (13:21)
[2019-09-21] MEDS: Albuterol/Ipratropium 3.0-0.5 MG/3 ML Neb Soln INH SCH (13:22)
[2019-09-22] MEDS: Albuterol 8 GM Inhaler INH PRN ×2 (06:21→19:30)
[2019-09-22] MEDS: Levothyroxine 25 MCG Tab PO SCH (07:26)
[2019-09-22] MEDS: Levothyroxine 100 MCG Tab PO SCH (07:26)
[2019-09-22] MEDS: Albuterol/Ipratropium 3.0-0.5 MG/3 ML Neb Soln NEB PRN (07:27)
[2019-09-22 07:56] LABS: ANION GAP 16.3 mmol/L (5-15); CHLORIDE,CL 109 mmol/L (98-115); SODIUM,NA 147 mmol/L (136-145)
--- NOTE | 2019-09-22 08:46 | PN ---
09/20/2019 PATIENT NAME: MALIHA LAGUNA HISTORY OF PRESENT ILLNESS: This is a 68-year-old female who is admitted through the emergency room last evening. Krzysztof Landaverde saw her. She does have a history of severe COPD, in fact is on a lung transplant list with the [facility]. She was quite hypoxic, which did improve with oxygen. The patient does not have oxygen at home, but probably should. Chest x-ray in the ER was negative for pneumonia. She does have COPD as previously mentioned. She was diagnosed with influenza B on Sunday, September 15, 2019, and was seen in the clinic and treated appropriately with Tamiflu. Since that time, she has had increasing shortness of breath. Her adds that last night she was trying to eat and was actually choking because she was so short of breath. In the ER, white count was 11,000 with a neutrophil percentage of 88%. Chemistry shows normal sodium. Potassium was 3.1, which is slightly low. Glucose is 123. Albumin was 2.87, which is low. The patient states she has not been eating well. The remainder of the lab results were fairly normal. She was given a one time dose of Solu-Medrol 125 mg IV in the ER. She does report this helped her breathing last night and she was able to sleep. PHYSICAL EXAMINATION: VITAL SIGNS: Temp is 97.4, pulse 80, respirations 24, blood pressure 111/77, O2 sat is 97% on 2 L of oxygen and down into the 70s without oxygen and activity. GENERAL: She appears short of breath. She does have a productive cough and looks very pale. SKIN: Warm, pale, dry to touch. CARDIAC: Reveals S1, S2 to be normal. Rate and rhythm are regular. No murmur, click, or gallop is auscultated. LUNGS: Clear in the upper lobes. Left lower lobe is quite clear as well. Right lower lobe has some wheezes and rhonchi. ABDOMEN: Soft, nontender. Bowel sounds present in all 4 quadrants. There is no pedal edema. IMPRESSION: 1. Severe chronic obstructive pulmonary disease exacerbated by recent influenza B diagnosis. She has been treated for the influenza B, however, this has worsened her already compromised respiratory system. I do plan to keep her through the weekend. I did order ceftriaxone to cover any secondary bacterial infection that may be occurring. She does not have pneumonia on chest x-ray; however, she does have a severe bronchitis secondary to the influenza B and most likely a secondary bacterial infection at this time with an elevated white count and left shift. She will continue on Solu-Medrol 80 mg IV t.i.d. throughout the weekend and most likely go home on a prednisone taper. 2. Hypoxia. She would be an excellent candidate for home oxygen therapy. This will be addressed by Lisa Sierra, respiratory therapist on Sunday prior to the patient's discharge. 3. Hypokalemia. We will change her IV fluids from regular normal saline at 125 mL an hour to normal saline with 40 of KCl at 75 mL an hour. She is due for daily labs with a CBC and a CMP ordered for the next several days. I did address her code status with her. She is a full code. As mentioned before, she is on a lung transplant list with the [facility]. Correspondence will be made with her nurse outreach case manager on Sunday in regard to her hospitalization. /[id number]/MODL
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
[2019-09-22] MEDS: FLUTICASONE INH SCH ×2 (09:33→21:22)
[2019-09-22] MEDS: SALMETEROL INH SCH ×2 (09:33→21:22)
[2019-09-22] MEDS: levETIRAcetam 500 MG Tab PO SCH ×2 (09:34→21:14)
[2019-09-22] MEDS: IPRATROPIUM INH SCH ×3 (11:26→19:04)
[2019-09-22] MEDS: ALBUTEROL INH SCH ×3 (11:26→19:04)
[2019-09-22] MEDS: Albuterol/Ipratropium 3.0-0.5 MG/3 ML Neb Soln INH SCH (11:26)
[2019-09-22] MEDS: Omeprazole 20 MG Cap.CR PO SCH (11:30)
[2019-09-22] MEDS: cefTRIAXone 1 GM Vial IVPUSH SCH (11:58)
[2019-09-22] MEDS: Aspirin 81 MG Tab.Chew PO SCH (13:05)
[2019-09-22] MEDS: atorvaSTATin 40 MG Tab PO SCH (13:05)
[2019-09-22] MEDS: Calcium Citrate/Vitamin D3 315 MG-250 Unit Tab PO SCH (13:05)
[2019-09-22] MEDS: predniSONE 10 MG Tab PO SCH (15:27)
[2019-09-22] MEDS: Levofloxacin 500 MG Tab PO SCH (15:27)
[2019-09-22] MEDS ORDERED: Codeine/guaiFENesin 100-10 MG/5 ML Syrup 5 ML Cup PO PRN (16:37)
[2019-09-23] MEDS: ALBUTEROL INH SCH ×3 (00:04→14:30)
[2019-09-23] MEDS: IPRATROPIUM INH SCH ×3 (00:04→14:30)
[2019-09-23] MEDS: Albuterol/Ipratropium 3.0-0.5 MG/3 ML Neb Soln INH SCH ×2 (06:49→08:44)
[2019-09-23 06:52] VITALS: BP 131/75
[2019-09-23 07:44] LABS: O2 DELIVERY DEVICE NASAL CANNULA; O2 FLOW RATE 2 L/min
[2019-09-23 07:45] LABS: BASE EXCESS ARTERIAL -1 mmol/L (-2-3); BICARBONATE,ARTERIAL 25.1 mmol/L (22-26); O2 SATURATION ARTERIAL 98 % (95-98); PCO2 ARTERIAL 52 mmHG (35-45); PO2 ARTERIAL 110 mmHG (80-105)
[2019-09-23 08:07] LABS: ANION GAP 31.9 mmol/L (5-15); CHLORIDE,CL 103 mmol/L (98-115); SODIUM,NA 156 mmol/L (136-145)
[2019-09-23 08:13] LABS: O2 DELIVERY DEVICE BIPAP; O2 FLOW RATE 1 L/min
[2019-09-23 08:15] LABS: BASE EXCESS ARTERIAL 6 mmol/L (-2-3); BICARBONATE,ARTERIAL 30.1 mmol/L (22-26); O2 SATURATION ARTERIAL 89 % (95-98); PCO2 ARTERIAL 43 mmHG (35-45); PO2 ARTERIAL 54 mmHG (80-105)
[2019-09-23] MEDS: atorvaSTATin 40 MG Tab PO SCH (08:44)
[2019-09-23] MEDS: levETIRAcetam 500 MG Tab PO SCH (08:44)
[2019-09-23] MEDS: predniSONE 10 MG Tab PO SCH (08:44)
[2019-09-23] MEDS: Levothyroxine 100 MCG Tab PO SCH (08:44)
[2019-09-23] MEDS: Aspirin 81 MG Tab.Chew PO SCH (08:44)
[2019-09-23] MEDS: Calcium Citrate/Vitamin D3 315 MG-250 Unit Tab PO SCH (08:44)
[2019-09-23] MEDS: Levothyroxine 25 MCG Tab PO SCH (08:44)
[2019-09-23] MEDS: Omeprazole 20 MG Cap.CR PO SCH (08:44)
[2019-09-23] MEDS ORDERED: Ondansetron 4 MG/2 ML SDV IVPUSH ONE (08:53)
[2019-09-23] MEDS ORDERED: LORazepam 2 MG/ML SDV IVPUSH ONE (08:59)
[2019-09-23] MEDS ORDERED: LORazepam 2 MG/ML SDV ONE (09:00)
[2019-09-23] MEDS ORDERED: Sodium Chloride 0.9% 1,000 ML IV SCH (09:00)
[2019-09-23] MEDS ORDERED: Succinylcholine 200 MG/10 ML MDV IV ONE (09:10)
[2019-09-23] MEDS ORDERED: Propofol 200 MG/20 ML SDV IVPUSH ONE ×2 (09:10→10:00)
[2019-09-23] MEDS ORDERED: Midazolam 1 MG/ML 2 ML SDV IVPUSH ONE ×2 (09:22→10:07)
[2019-09-23] MEDS ORDERED: Rocuronium 50 MG/5 ML Vial IV ONE ×2 (09:22→10:07)
--- NOTE | 2019-09-23 09:45 | CR ---
[id number] RAD/RAD Chest PA or AP 1V EXAM: RAD Chest PA or AP 1V INDICATION: ENDOTRACHEAL TUBE PLACEMENT. COMPARISON: September 19, 2019. DISCUSSION: Endotracheal tube in place. Tip 63 mm above the dawson. No pneumothorax. No other significant change from the prior examination IMPRESSION: Endotracheal tube placement. Ambrose Mcclendon MD 09/23/19 0943 Thank you for allowing us to participate in the care of your patient.
--- NOTE | 2019-09-23 10:15 | PN ---
09/22/2019 PATIENT NAME: MALIHA LAGUNA HISTORY OF PRESENT ILLNESS: This is a 68-year-old female who was admitted through the emergency room on 09/19/2019, with respiratory distress, hypoxia, and bacterial bronchitis after influenza B. The patient was diagnosed with influenza B on 09/15/2019, and treated appropriately with Tamiflu. The patient became increasingly short of breath at home and was brought to the emergency room where she was admitted to the hospital. She has been covered with IV steroids and IV antibiotics until last evening when her IV infiltrated. We will start an oral prednisone taper today and put her on oral Levaquin. She has been evaluated by respiratory therapist, Lisa Sierra, who did ambulate her without oxygen and she did desaturate into the high 70s with activity. She is definitely a candidate for home oxygen therapy. Renée Ascencio is available to set up the home O2, but not until tomorrow. The patient is on a lung transplantation list at the [facility]. Up until this time, she has not needed oxygen at home, which is somewhat puzzling to me. LABORATORY DATA: From today, her white count is 15,380 with this trending upward. She did have an admission white blood cell count of 11,000. This went up to 13.8 yesterday. She does have a left shift as well. Sodium today is 147. She did have hypokalemia which is corrected with IV potassium. Admission potassium is 3.1 and is now 3.7. Please correct the date of admission in the HPI. The remainder of her lab work shows an elevated anion gap of 16.3, initially 18.2. AST is elevated at 39 and albumin is 2.52. PHYSICAL EXAMINATION: VITAL SIGNS: On examination, temp is 97.2, pulse 97, respirations 20, blood pressure 124/77. Her oxygen saturation is 82 at rest without oxygen and 94% on 2 L of oxygen. SKIN: Pale, warm and dry to touch. CARDIAC: Reveals S1, S2 to be normal. Rate and rhythm are regular. No murmur, click, or gallop is auscultated. LUNGS: Clear today. She previously had expiratory wheezes and some rhonchi initially as well. LUNGS: Much improved. ABDOMEN: Soft, nontender. Bowel sounds present in all four quadrants. There is no pedal edema. IMPRESSION: 1. Chronic obstructive pulmonary disease exacerbation following influenza B. We will begin an oral steroid taper and she will go home with this as well. I did initiate Levaquin 500 mg daily. She is using an incentive spirometer as directed. 2. Candidate for lung transplantation at the [facility]. 3. Need for home O2. She does definitely qualify and will be set up tomorrow. 4. Hypokalemia, resolved. 5. Hypothyroidism, on thyroid replacement. 6. Seizure disorder. She is taking Keppra. 7. Gastroesophageal reflux disease, on omeprazole. 8. Hypercholesterolemia. She is taking atorvastatin. She will continue her respiratory regimen including DuoNeb, Combivent, Advair, as well as rescue inhaler. The plan is to discharge on 09/23/2019. She will be set up with home O2 therapy. She will be discharged with oral steroids as well as oral antibiotics. /[id number]/MODL
[2019-09-23] MEDS ORDERED: Midazolam 1 MG/ML 2 ML SDV ONE (10:44)
[2019-09-23] MEDS ORDERED: Propofol 200 MG/20 ML SDV ONE (10:45)
[2019-09-23] MEDS: FLUTICASONE INH SCH (10:55)
[2019-09-23] MEDS: SALMETEROL INH SCH (10:55)
[2019-09-23 12:18] VITALS: PULSE 112
[2019-09-23] MEDS: Levofloxacin 500 MG Tab PO SCH (14:31)
--- NOTE | 2019-09-23 15:06 | DISCH ---
This is a discharge/transfer note. HOSPITAL COURSE: This is a 68-year-old female who was admitted to the hospital on 09/19/2019, with respiratory distress, hypoxia following influenza B infection. The patient actually was improving to the point where we were planning to discharge her from the hospital today however, this morning the patient became quite confused, took off her oxygen, and had what the nurse described as a glazed look in her eyes. The patient did have respiratory or cardiac arrest. However, a code was called. The patient was placed on BiPAP. After just a few minutes of BiPAP, ABGs were drawn which showed a pH of 7.29, pCO2 of 52, PO2 of 110, bicarb of 25.1. After 30 minutes of BiPAP, her ABGs did improve with a pH of 7.45, pCO2 of 43, PO2 of 54, and bicarb of 30. The patient was alert following the episode, but somewhat confused and realized she was confused. Plans were made to transfer her to [facility] in [place], [place]. While waiting for the ambulance, the patient had a grand mal seizure. She had difficulty with her airway. Initially, we did an Ambu. Selam Clements CRNA was called in to intubate the patient, which was performed and please see her procedure note for the same. Portable chest x-ray was performed to confirm placement of the ET tube and correct placement was confirmed. Orogastric tube was placed and a Mcgrath catheter was placed as well. Prior to the initial episode this morning, 2 intravenous accesses were inserted. The patient received Ativan 0.25 following the grand mal seizure. She was then also given rocuronium, succinylcholine, and Versed by the [employer]. I initially spoke to the ER physician who accepted the patient in transfer. After the patient's condition deteriorated, I spoke with a nurse practitioner, who works in the intensive care unit. Her name is Cinthya Coy. The patient was transferred directly into the Intensive Care Unit via [facility] ambulance. It is unclear what precipitated the patient's physical decline as she was improving. We did add a troponin on to lab work from this morning which was normal at 0.05. The patient's came in and will follow the patient to [facility] in [place], [place], by car. FINAL DISCHARGE DIAGNOSES: 1. Severe chronic obstructive pulmonary disease, on lung transplantation list at [facility]. 2. Recent influenza B infection leading to bacterial bronchitis. Both conditions treated appropriately with Tamiflu as well as IV antibiotics. IV steroids were also administered. 3. Respiratory decline rapidly this morning with the etiology that is unclear. 4. Hypothyroidism, stable on thyroid replacement. 5. Seizure disorder. She is on Keppra and has been seizure-free for several years. However, did have a grand mal seizure today. 6. Gastroesophageal reflux disease, stable on PPI therapy. /[id number]/MODL
== END 2019-09-23 10:10 ==
LOC: KA.ED 19:30 → KA.MS 21:35 → UNDOADMOB 23:48 → KA.MS 23:48
PROVIDERS: ADMIT Physician Assistant Surgical
DX: J10.1 Influenza due to other identified influenza virus with other respiratory manifestations (principal); J44.1 Chronic obstructive pulmonary disease with (acute) exacerbation; E87.6 Hypokalemia; G40.909 Epilepsy, unspecified, not intractable, without status epilepticus; K21.9 Gastro-esophageal reflux disease without esophagitis; E78.00 Pure hypercholesterolemia, unspecified; E03.9 Hypothyroidism, unspecified; M19.90 Unspecified osteoarthritis, unspecified site; Z79.82 Long term (current) use of aspirin; Z79.899 Other long term (current) drug therapy
CPT/HCPCS: 36415; 36600; 71045; 71046; 80053; 82803; 84484; 85025; 94640; 94660; 96361; 96374; 99220; 99285-25; A9270-GY; J0330; J0696; J2060; J2250; J2704; J2930; J3480; J7030; J7620-GY